=== PATIENT | female | born 1960 | race Caucasian/White ===

== ENCOUNTER → 2017-08-07 10:31 | Outpatient (CLI) | payer MEDICAID, SELFPAY ==
--- NOTE | 2017-08-07 10:46 | EKG12_ITS ---
Test Reason : PRE-OP Blood Pressure : / mmHG Vent. Rate : 071 BPM Atrial Rate : 071 BPM P-R Int : 168 ms QRS Dur : 094 ms QT Int : 444 ms P-R-T Axes : 037 028 096 degrees QTc Int : 482 ms Normal sinus rhythm Possible Inferior infarct , age undetermined Abnormal ECG Confirmed by CARLOTTA CANNON, AMA ([id number]), editor farm journal CHANTELL PRICE ([id number]) on 08/08/2017 10:05:05 AM Referred By: Jermaine Lugo Confirmed By:AMA LAGUERRE MD
--- NOTE | 2017-08-07 10:50 | RAD_ITS ---
STUDY: X-RAY CHEST REASON FOR EXAM: Female, 57 years old. Pre-op TECHNIQUE: Frontal and lateral views of the chest. COMPARISON: None. FINDINGS: The lungs are clear and expanded. Mild fibrosis suggested throughout the lungs. No focal infiltrates or effusions. There is no demonstrated pleural abnormality. Sternal cerclage wires and vascular clips are present from a prior sternotomy and coronary artery bypass graft procedure (CABG). Normal heart size. Normal mediastinum and castro. Normal visualized pulmonary arteries. Normal visualized aortic arch and descending thoracic aorta. Normal visualized thoracic spine. Normal visualized ribs, clavicles, and shoulders. There is no demonstrated abnormality of the visualized soft tissue structures of the upper abdomen. RAD/Chest PA and Lateral IMPRESSION: Probable mild diffuse interstitial prominence which could be fibrosis. No infiltrates or effusions. Electronically Signed: Marc Dewitt MD at 17:33 EST , Service support ,
[2017-08-07 10:55] LABS: Hematocrit 40.1 % (37-47); Hemoglobin 13.2 g/dl (12.0-15.0); Mean Corp Hgb Conc 32.9 g/gl (32-36); Mean Corpuscular Hgb 31.3 pg (27.0-32.0); Platelet Count 242 K/mm3 (150-450); RBC Distribution Width CV 12.8 % (11.6-14.6); RBC Distribution Width SD 44.4 fl (35.1-43.9); Red Blood Count 4.22 M/mm3 (4.2-5.4); White Blood Count 11.1 K/mm3 (4.4-11.0)
[2017-08-07 10:56] LABS: Scan Indicated on CBC? Y/N NO
[2017-08-07 11:25] LABS: Anion Gap 6 (5-15); BUN 44 mg/dL (7-18); BUN/Creat Ratio 20.2 RATIO (10-20); Calcium,Total 9.1 mg/dL (8.5-10.1); Chloride 100 mmol/L (98-107); Creatinine, Serum 2.18 mg/dL (0.55-1.02); EST Glomerular Filtration Rate 25 mL/min (>60); Est Glom Filt Rate - Afr Amer 30 mL/min (>60); Glucose 179 mg/dL (74-106); Potassium 4.9 mmol/L (3.5-5.1); Sodium Level 134 mmol/L (136-145)
== END ==
PROVIDERS: Family Provider Family Medicine; PCP Family Medicine; Visit Provider Otolaryngology
DX: Z01.818 Encounter for other preprocedural examination (principal)
CPT/HCPCS: 36415; 71046; 80048; 85027; 93005

== ENCOUNTER 2017-09-03 07:13 | Day surgery (SDC) | payer MEDICAID, SELFPAY ==
[2017-08-26 14:48] VITALS: BP 113/59; PULSE 73; RESP 18; TEMP 37; O2SAT 96; BMI 34.6
--- NOTE | 2017-08-26 14:55 | EKG12_ITS ---
Test Reason : Blood Pressure : / mmHG Vent. Rate : 073 BPM Atrial Rate : 073 BPM P-R Int : 154 ms QRS Dur : 096 ms QT Int : 448 ms P-R-T Axes : 037 017 074 degrees QTc Int : 493 ms Normal sinus rhythm Inferior infarct , age undetermined Abnormal ECG Confirmed by CARLOTTA CANNON, AMA ([id number]), graphics editor CHANTELL PRICE ([id number]) on 08/27/2017 4:17:14 PM Referred By: Jermaine Lugo Confirmed By:AMA LAGUERRE MD
[2017-08-26 15:33] LABS: International Normalized Ratio 0.9; Prothrombin Time (Protime)PT. 12.3 SECONDS (11.7-14.9)
[2017-08-26 15:57] LABS: AST(SGOT) 17 U/L (15-37); Alanine Aminotransfer ALT/SGPT 18 U/L (13-56); Albumin, Serum 3.6 g/dL (3.2-5.0); Alkaline Phosphatase 83 U/L (45-117); Anion Gap 5 (5-15); BUN 23 mg/dL (7-18); BUN/Creat Ratio 12.6 RATIO (10-20); Bilirubin, Direct 0.09 mg/dL (0.00-0.30); Calcium,Total 9.5 mg/dL (8.5-10.1); Chloride 102 mmol/L (98-107); Creatinine, Serum 1.83 mg/dL (0.55-1.02); EST Glomerular Filtration Rate 30 mL/min (>60); Est Glom Filt Rate - Afr Amer 37 mL/min (>60); Estimated Creatinine Clearance 35.04 ml/min; Globulin 3.8 g/dL (2.2-4.2); Glucose 147 mg/dL (74-106); Potassium 4.5 mmol/L (3.5-5.1); Protein, Total 7.4 g/dL (6.4-8.2); Sodium Level 138 mmol/L (136-145); Thyroid Stim Hormone (TSH) 0.24 uIU/mL (0.358-3.74)
[2017-09-03] VITALS (10 sets, daily range): BP systolic 117–145; BP diastolic 53–75; PULSE 61–77; RESP 12–18; TEMP 35.8–36.7; O2SAT 93–99; BMI 34.6
--- NOTE | 2017-09-03 08:03 | PCM.DC ---
You will use the following diet at home:: No restrictions Discharge Activity: Return to Normal Activity Call your doctor if your incision/area has: Increased Pain/ Swelling Additional Dressing/Incision Instructions:: saline nasal irrigations 6 times daily Allergies/Adverse Reactions: Allergies chlorpheniramine [From [facility]] Allergy (Verified 08/26/17 14:25) Anaphylaxis codeine [From [facility]] Allergy (Verified 08/26/17 14:25) Anaphylaxis dihydrocodeine [From [facility]] Allergy (Verified 08/26/17 14:25) Anaphylaxis phenylephrine [From [facility]] Allergy (Verified 08/26/17 14:25) Anaphylaxis pseudoephedrine [From [facility]] Allergy (Verified 08/26/17 14:25) Anaphylaxis morphine Adverse Reaction (Verified 08/26/17 14:25) Rash ranolazine [From Ranexa] Adverse Reaction (Verified 08/26/17 14:25) Rash warfarin [From Coumadin] Adverse Reaction (Verified 08/26/17 14:25) Other BLEED Medications to take at Discharge Acetaminophen [Tylenol] 325 mg PO TID 08/27/17 Albuterol Aerosols [Ventolin Aerosols] 2.5 mg INHALATION Q4H PRN PRN 08/27/17 Alendronate Sodium [Fosamax] 70 mg PO Q7D@0700 08/27/17 Aspirin [Aspirin, Baby] 81 mg PO DAILY@0800 08/27/17 Calcium Carbonate [Calcium] 1,500 mg PO QWEEK 08/27/17 Carvedilol [Coreg] 12.5 mg PO BID 08/27/17 Citalopram [Celexa] 20 mg PO DAILY 08/27/17 Dulaglutide [Trulicity] 1.5 mg SQ QWEEK 08/27/17 Ergocalciferol [Vitamin D] 50,000 unit PO Q7D 08/27/17 Furosemide [Lasix] 80 mg PO DAILY 08/27/17 GlipiZIDE [Glucotrol] 5 mg PO BIDAC 08/27/17 Hydrocortisone 1% Crm [Hytone] 1 applic TOPICAL DAILY 08/27/17 Isosorbide Mononitrate [Imdur] 90 mg PO QHS 08/27/17 L.acidoph,Paracasei, B.lactis [Probiotic] 2 each PO DAILY 08/27/17 Latanoprost 0.005% [Xalatan Opthalmic] 1 drop EACH EYE QHS 08/27/17 Levothyroxine Sodium [Synthroid] 125 mcg PO DAILY 08/27/17 Lisinopril [Zestril] 20 mg PO DAILY 08/27/17 Lorazepam [Ativan] 1 mg PO BID 08/27/17 Mirtazapine [Remeron] 30 mg PO QHS 08/27/17 Multivitamin [Daily Multiple Vitamin] 1 each PO DAILY 08/27/17 Nitroglycerin [Nitro-Dur] 0.1 mg TRANSDERM. PRN PRN 08/27/17 Omeprazole [Prilosec] 20 mg PO DAILY 08/27/17 Ondansetron HCl [Zofran] 4 mg PO BID 08/27/17 Potassium Chloride [K-Dur] 10 meq PO DAILY 08/27/17 Rosuvastatin Calcium [Crestor] 40 mg PO DAILY 08/27/17 Sodium Chloride 0.65% [[place] Nasal [place]] 1 spray NASAL DAILY 08/27/17 Hydrocodone/Acetaminophen [Strawn 5-325 Tablet] 1 ea PO Q6H 5 Days #15 tab 09/03/17 Levofloxacin [Levaquin] 500 mg PO DAILY #14 tab 09/03/17 MethylPREDNISolone DosePak [Medrol DosePak] 4 mg PO DAILY #1 pack 09/03/17 The following prescriptions were given: Levofloxacin [Levaquin] 500 mg PO DAILY #14 tab MethylPREDNISolone DosePak [Medrol DosePak] 4 mg PO DAILY #1 pack Hydrocodone/Acetaminophen [Strawn 5-325 Tablet] 1 ea PO Q6H 5 Days #15 tab Primary Care Physician: Edinson Novak MD [Primary Care Provider] - Please Follow Up With: Clyde Lugo MD When: 1 week
[2017-09-03 08:21] LABS: Bedside Glucose 204 mg/dL (70-110)
[2017-09-03] MEDS: Clindamycin 900 MG/50 ML BAG 75 MG IV (08:35)
--- NOTE | 2017-09-03 08:38 | PCM.OPRPT ---
Problem List (1) Chronic pansinusitis Status: Chronic Report of Operation Date of Procedure: 09/03/17 Pre-Operative Diagnosis: chronic pansinusitis Post-Operative Diagnosis: chronic pansinusitis Surgery/Procedure Performed:: 1. endoscopic maxillary antrostomy with tissue removal, right and left. 2. endoscopic anterior ethmoidectomy, right and left. 3. endoscopic frontal sinusotomy with tissue removal, right and left. 4. endoscopic sphenoidotomy with tissue removal, right and left Type of Anesthesia:: General Specimen's removed: right and left sinus contents Drains: none Estimated Blood Loss (mL): 3cc Description of Procedure: on the day of the procedure, after appropriate informed consent was obtained, the patient was brought to the operating room and placed in supine position on the operating table. she was placed under general endotracheal anesthesia by the anesthesiologist. the endotracheal tube was secured. the eyes were lubricated and the facial/sinus navigation was setup. the bilateral nasal cavities were decongested with oxymetazoline-soaked pledgets. the left and right superior attachment of the middle turbinate and uncinate processes were injected with lidocaine/epinephrine. a zero degree endoscope was inserted into the left nasal cavity. the middle turbinate was medialized and an uncinectomy/antrostomy was performed with a donnie elevator and a matt. copious amounts of purulent drainage occurred. contents were removed. the ethmoid bulla was entered bluntly with a suction tip and an anterior ethmoidectomy was performed with a j-curette and upgoing blakesley. this was taken superiorly to the skull base and laterally to the lamina. the frontal recess was probed and widened, and contents were evacuated. the sphenoid os was located and widened using a mushroom punch and georges-cut. the anterior/inferior portion of the middle turbinate was removed using mckenzie scizzors. the sinonasal cavity was irrigated with saline. a stankewicz maneuver was performed and no laminar defect was noted. a zero degree endoscope was inserted into the right nasal cavity. the middle turbinate was medialized and an uncinectomy/antrostomy was performed with a donnie elevator and a matt. contents were removed. the ethmoid bulla was entered bluntly with a suction tip and an anterior ethmoidectomy was performed with a j-curette and upgoing blakesley. this was taken superiorly to the skull base and laterally to the lamina. the frontal recess was probed and widened, and contents were evacuated. the sphenoid os was located and widened using a mushroom punch and georges-cut. the anterior/inferior portion of the middle turbinate was removed using mckenzie scizzors. the sinonasal cavity was irrigated with saline. a stankewicz maneuver was performed and no laminar defect was noted. the patient was awoken from general endotracheal anesthesia and transferred to the PACU in stable condition. Grafts/Implants Used: none
--- NOTE | 2017-09-03 08:45 | ETH_PTH ---
PATIENT: CRISTINA COUCH LOC: [facility] [place] U#:[id number] AGE/SX: 57/F ROOM: RE09/03/[address]: Dr. Mamadou Lugo MD : 1960 BED: DIS: 09/03/2017 SPEC #: [id number] RECD: 09/03/17 10:12 STATUS: CHETAN NAZARIO #: [id number] SHARYN: 09/03/17 08:[address]: Mamadou Lugo DEPT: SURGICAL PATHOLOGY RECD BY: Kirill Dennis ENTERED: 09/03/17 14:17 SP TYPE: ETH TISS OTHR DR: Dr. Edinson Novak MD Tissues: A - Ethmoid sinus, NOS B - Ethmoid sinus, NOS Procedures: Decalcification bone/plaque Surgery Specimen Level IV HEADER OPERATION: Functional endoscopic sinus surgery PRE-OP DIAGNOSIS: Chronic pansinusitis TISSUE SUBMITTED: A ? Left sinus contents, B ? Right sinus contents MICROSCOPIC DIAGNOSIS A. Left sinus contents: Fragments of respiratory mucosa including turbinate with mild chronic inflammation and bone. B. Right sinus contents: Fragments of respiratory mucosa including turbinate with mild chronic inflammation and bone. LIANNE:jeanne 09/06/17 MICROSCOPIC DESCRIPTION Slides are reviewed. GROSS DESCRIPTION A - Received in fixative is one container labeled with the patient's name and designated left sinus contents. The specimen consists of multiple irregular fragments of pink-red soft tissue mixed with a few fragments of bone including turbinate that in aggregate measure 5 x 3 x 0.3 cm. The entire specimen is submitted in two cassettes after decalcification. B - Received in fixative is one container labeled with the patient's name and designated right sinus contents. The specimen consists of multiple irregular fragments of pink-red soft tissue mixed with a few fragments of bone including turbinate that in aggregate measure 5 x 3 x 0.3 cm. The entire specimen is submitted in two cassettes after decalcification. / LIANNE:jeanne 09/03/17 TC:3 CPT: 94983 x2, 62863 x2
[2017-09-03] MEDS: Oxymetazoline 0.05% 1 SPRAY SPRAY.BTL 15 SPRAY (08:59)
--- NOTE | 2017-09-03 10:06 | EKGRS_ITS ---
Test Reason : POST OP Blood Pressure : / mmHG Vent. Rate : 072 BPM Atrial Rate : 072 BPM P-R Int : 174 ms QRS Dur : 098 ms QT Int : 452 ms P-R-T Axes : 045 041 131 degrees QTc Int : 494 ms Normal sinus rhythm ST & T wave abnormality, consider inferior ischemia Prolonged QT Abnormal ECG Confirmed by CARLOTTA CANNON, AMA ([id number]), managing editor CHANTELL PRICE ([id number]) on 09/06/2017 2:11:26 PM Referred By: Jermaine Lugo Confirmed By:AMA LAGUERRE MD
[2017-09-03 11:15] LABS: Bedside Glucose 190 mg/dL (70-110)
== END 2017-09-03 14:42 | disposition home or self-care (01) ==
LOC: SDC 07:13 → AC 07:14
PROVIDERS: Anesthesiology; Family Provider Family Medicine; PCP Family Medicine; Visit Provider Otolaryngology
PROC: (CPT 31254; principal; 2017-09-03 08:15)
DX: J32.4 Chronic pansinusitis (principal); J32.0 Chronic maxillary sinusitis; I12.9 Hypertensive chronic kidney disease with stage 1 through stage 4 chronic kidney disease, or unspecified chronic kidney disease; E11.22 Type 2 diabetes mellitus with diabetic chronic kidney disease; N18.4 Chronic kidney disease, stage 4 (severe); J44.9 Chronic obstructive pulmonary disease, unspecified; E78.00 Pure hypercholesterolemia, unspecified; G47.30 Sleep apnea, unspecified; H40.9 Unspecified glaucoma; F32.9 Major depressive disorder, single episode, unspecified; F41.9 Anxiety disorder, unspecified; I25.2 Old myocardial infarction; Z79.82 Long term (current) use of aspirin; Z79.84 Long term (current) use of oral hypoglycemic drugs; Z79.899 Other long term (current) drug therapy; Z87.891 Personal history of nicotine dependence; Z98.51 Tubal ligation status; Z95.1 Presence of aortocoronary bypass graft
CPT/HCPCS: 00160; 31254; 31267; 31276; 31288; 36415; 80048; 80076; 82962; 83036; 84443; 84484; 85610; 85730; 88305; 88311; 93005; J3010; J7120; J2405

== ENCOUNTER → 2018-12-10 11:24 | Outpatient (CLI) | payer MEDICAID, SELFPAY ==
[2018-12-10 09:48] VITALS: BMI 31.9
[2018-12-10 12:41] LABS: ALB/GLOB Ratio 0.8 RATIO (0.9-2.4); AST(SGOT) 20 U/L (15-37); Alanine Aminotransfer ALT/SGPT 27 U/L (13-56); Albumin, Serum 3.5 g/dL (3.2-5.0); Alkaline Phosphatase 80 U/L (45-117); Anion Gap 9 (5-15); BUN 54 mg/dL (7-18); BUN/Creat Ratio 22.5 RATIO (10-20); Calcium,Total 9.9 mg/dL (8.5-10.1); Chloride 98 mmol/L (98-107); EST Glomerular Filtration Rate 22 mL/min (>60); Est Glom Filt Rate - Afr Amer 27 mL/min (>60); Globulin 4.3 g/dL (2.2-4.2); Glucose 87 mg/dL (74-106); Potassium 4.4 mmol/L (3.5-5.1); Protein, Total 7.8 g/dL (6.4-8.2); Sodium Level 136 mmol/L (136-145)
== END ==
PROVIDERS: Family Provider Family Medicine; PCP Family Medicine; Referring Provider Specialist; Visit Provider Specialist
DX: I50.9 Heart failure, unspecified (principal)
CPT/HCPCS: 36415; 80053

== ENCOUNTER → 2019-02-17 08:46 | Outpatient (CLI) | payer MEDICAID, SELFPAY ==
[2018-12-10 09:48] VITALS: BMI 31.9
--- NOTE | 2019-02-17 08:48 | ECHOCS_ITS ---
Version 2 Reason For Study: CHF Procedure This was a 2D Doppler, Color Flow transthoracic echocardiogram. The study was technically difficult. Contrast injection was performed. Exam performed in department. Left Ventricle Normal LV size. The estimated ejection fraction is 55-60 %. Stage 2 diastolic dysfunction. No regional wall motion abnormalities noted. Right Ventricle Normal RV size. Normal systolic function. Atria The left atrium is mildly enlarged. Normal right atrium. No doppler evidence for ASD. Mitral Valve There is no mitral valve stenosis. Moderately severe (3+) mitral valve insufficiency. Tricuspid Valve There is no tricuspid stenosis. Mild tricuspid valve insufficiency. Pulmonary artery systolic pressure is 40 mmHg. Aortic Valve Trisinus/trileaflet aortic valve. There is no aortic stenosis. No aortic valve insufficiency. Pulmonic Valve There is no pulmonic valvular stenosis. Moderate (2+) pulmonic valve insufficiency. Great Vessels Normal aortic root. Pericardium/Pleural No pericardial effusion. Medication 22 gauge I.V. with prn adaptor inserted into right arm. Diluted definity 2.5ml given slow IV push to enhance endocardial definition. MMode/2D Measurements & Calculations LVIDd: 5.4 cm IVSd: 0.86 cm Ao root diam: 3.3 cm LVIDs: 4.0 cm LVPWd: 1.1 cm RVDd: 3.2 cm FS: 25.9 % LAV(MOD-bp): 43.0 ml LVAd ap4: 37.3 cm2 SV(MOD-sp4): 69.8 ml LAV(MOD-bp) Indexed: 20.4 ml/m2 EDV(MOD-sp4): 127.4 ml LAV(MOD-sp2): 53.1 ml EDV(sp4-el): 134.8 ml LAV(MOD-sp4): 35.1 ml LVAs ap4: 22.5 cm2 ESV(MOD-sp4): 57.6 ml ESV(sp4-el): 59.3 ml EF(MOD-sp4): 54.8 % EF(sp4-el): 56.0 % SV(sp4-el): 75.5 ml LA A4 area: 15.2 cm2 LA dimension(2D): 5.1 cm RA A4 area: 14.5 cm2 Time Measurements MV dec time: 0.28 sec Doppler Measurements & Calculations MV E max jose alberto: 102.3 cm/sec Lat Peak E' Jose Alberto: 9.6 cm/sec Med Peak E' Jose Alberto: 4.3 cm/sec MV A max jose alberto: 95.2 cm/sec E/E' lat: 10.6 E/E' med: 23.7 MV E/A: 1.1 MV V2 max: 131.8 cm/sec Ao V2 max: 125.8 cm/sec LV V1 max: 89.6 cm/sec MV max P.9 mmHg Ao max P.3 mmHg LV V1 max P.2 mmHg MV V2 mean: 75.9 cm/sec MV mean P.6 mmHg MV V2 VTI: 40.6 cm PA V2 max: 144.2 cm/sec PI end-d jose alberto: 133.3 cm/sec TR max jose alberto: 297.7 cm/sec PA V2 mean: 93.8 cm/sec TR max P.5 mmHg PA V2 VTI: 30.2 cm MV P1/2t-pr_phl: 96.3 msec Interpretation Summary Diluted definity 2.5ml given slow IV push to enhance endocardial definition. The estimated ejection fraction is 55-60 %. Stage 2 diastolic dysfunction. Moderately severe (3+) mitral valve insufficiency. Pulmonary artery systolic pressure is 40 mmHg. The study was technically difficult. Ordering Physician: Rodriguez Vazquez Referring Physician: KENDALL XIONG Performed By: Joseline Snow, HERBCS, RVT
== END ==
PROVIDERS: Family Provider Family Medicine; PCP Family Medicine; Referring Provider Specialist; Visit Provider Specialist
DX: I50.9 Heart failure, unspecified (principal); I34.0 Nonrheumatic mitral (valve) insufficiency; R93.1 Abnormal findings on diagnostic imaging of heart and coronary circulation
CPT/HCPCS: 93306; Q9957; A4216; C8929